=== PATIENT | female | born 1955 | race Caucasian/White ===

== ENCOUNTER → 2017-03-25 | Outpatient (CLI) | payer BC ==
--- NOTE | 2017-03-25 13:10 | REPMRS ---
Patient History The patient states she had a clinical breast exam in 12/2016. Patient is postmenopausal, has history of endometrial cancer at age 59, has history of ovarian cancer at age 50, and is nulliparous. Family history of prostate cancer in paternal uncle. Taking unspecified hormones for 11 years. Digital Woman Screen Mammo: March 25, 2017 - Exam #: [id number] Bilateral CC and MLO view(s) were taken. Technologist: Imelda Pedroza, Technologist Prior study comparison: January 17, 2016, digital woman screen mammo performed at [facility]. February 24, 2014, digital woman screen mammo performed at [facility]. FINDINGS: There are scattered fibroglandular densities. There has been no change in the appearance of the mammogram from the prior studies. There is a mild amount of residual fibroglandular tissue which is fairly symmetric. There is no interval development of dominant mass, architectural distortion, or clustered microcalcification suggestive of malignancy. ASSESSMENT: BI-RADS/ACR category 1 mammogram. Negative. Recommendation Routine screening mammogram in 1 year (for women over age 40). This mammogram was interpreted with the aid of an FDA-approved computer-aided dectection system. Electronically Signed By: Prince Hammond MD 03/25/17 1046
== END ==
LOC: M WHC 11:08
PROVIDERS: ATTEND Family Medicine
DX: Z12.31 Encounter for screening mammogram for malignant neoplasm of breast (principal); Z78.0 Asymptomatic menopausal state; Z79.890 Hormone replacement therapy

== ENCOUNTER 2017-08-08 12:07 | Emergency (ER) | payer BC ==
[2017-08-08] MEDS: KETOROLAC 60 MG/2 ML VIAL (J1885) IM (13:38)
[2017-08-08] MEDS: diazePAM 5 MG TAB PO (13:41)
[2017-08-08] MEDS: METHOCARBAMOL 1,000 MG/10 ML VIAL (J2800) IM (14:19)
== END 2017-08-08 15:06 | disposition home or self-care (01) ==
LOC: M ED 12:07
DX: M48.061 Spinal stenosis, lumbar region without neurogenic claudication (principal); M54.16 Radiculopathy, lumbar region; I10 Essential (primary) hypertension; F41.9 Anxiety disorder, unspecified; Z79.899 Other long term (current) drug therapy; Z79.890 Hormone replacement therapy; Z79.84 Long term (current) use of oral hypoglycemic drugs; Z88.8 Allergy status to other drugs, medicaments and biological substances; F17.210 Nicotine dependence, cigarettes, uncomplicated
CPT/HCPCS: J1885

== ENCOUNTER → 2017-08-25 | Outpatient (CLI) | payer BC | LOC: M PLARAD 07:38 | DX: M51.06 Intervertebral disc disorders with myelopathy, lumbar region (principal); M48.061 Spinal stenosis, lumbar region without neurogenic claudication ==

== ENCOUNTER → 2017-08-25 | Outpatient (CLI) | payer BC | LOC: M RAD 08:13 | DX: M51.06 Intervertebral disc disorders with myelopathy, lumbar region (principal); M48.061 Spinal stenosis, lumbar region without neurogenic claudication | CPT/HCPCS: 72148 ==

== ENCOUNTER → 2020-05-23 | Outpatient (CLI) | payer OTHER ==
[~2020-05-23] MED LIST: ATOR1TAB19 PO; CARV12.5 PO; CLON0.5T2 PO; ESTR1TAB PO; HYDR50TAB PO; METF10004 PO; PROG1CAP8 PO; ROBA500T PO; SYNT112T2 PO
--- NOTE | 2020-05-23 09:39 | REPMRS ---
Patient History The patient states she has not had a clinical breast exam in over a year. Family history of prostate cancer in paternal uncle. Taking unspecified hormones for 12 years. 3D TOMOSYNTHESIS WAS PERFORMED. [facility] lifetime risk for breast cancer is 9.0%. Voljeremya density a. Digital Woman Screen Mammo: May 23, 2020 - Exam #: [id number] Bilateral CC and MLO view(s) were taken. Technologist: Renée Irby, Technologist Prior study comparison: April 01, 2018, bilateral digital woman screen mammo performed at [facility]. March 25, 2017, digital woman screen mammo performed at [facility]. FINDINGS: There are scattered fibroglandular densities. There has been no change in the appearance of the mammogram from the prior studies. There is a mild amount of residual fibroglandular tissue which is fairly symmetric. There is no interval development of dominant mass, architectural distortion, or clustered microcalcification suggestive of malignancy. Assessment: BI-RADS/ACR category 1 mammogram. Negative Mammogram. Recommendation Routine screening mammogram in 1 year (for women over age 40). This mammogram was interpreted with the aid of an FDA-approved computer-aided dectection system. Electronically Signed By: Prince Hammond MD 05/23/20 0972
== END ==
LOC: M WHC 07:40
PROVIDERS: ATTEND Nurse Practitioner Family
DX: Z12.31 Encounter for screening mammogram for malignant neoplasm of breast (principal); Z79.899 Other long term (current) drug therapy

== ENCOUNTER → 2022-02-14 | Outpatient (CLI) | payer OTHER | LOC: M WHC 12:06 | PROVIDERS: ATTEND Family Medicine | DX: Z12.31 Encounter for screening mammogram for malignant neoplasm of breast (principal); Z78.0 Asymptomatic menopausal state; Z78.9 Other specified health status; Z80.42 Family history of malignant neoplasm of prostate; Z85.43 Personal history of malignant neoplasm of ovary ==

== ENCOUNTER → 2024-05-21 | Outpatient (CLI) | payer MEDICARE ==
[~2024-05-21] MED LIST changes: +ISOVUE-300 61% 100ML VIAL As Ordered ONE; +LIDOCAINE 1% MDV 20ML VIAL As Ordered ONE; +TRIAMCINOLONE ACETONIDE SUSP 40MG/ML 1ML VIAL As Ordered ONE
== END ==
LOC: M RAD 14:21
PROVIDERS: ATTEND Physician Assistant
DX: M16.11 Unilateral primary osteoarthritis, right hip (principal)
CPT/HCPCS: 20610; 77002; J3301; Q9967

== ENCOUNTER → 2024-09-08 | Outpatient (CLI) | payer MEDICARE ==
[~2024-09-08] MED LIST changes: -ISOVUE-300 61% 100ML VIAL As Ordered ONE; -LIDOCAINE 1% MDV 20ML VIAL As Ordered ONE; -TRIAMCINOLONE ACETONIDE SUSP 40MG/ML 1ML VIAL As Ordered ONE
== END ==
LOC: M WHC 13:19
PROVIDERS: ATTEND Nurse Practitioner Family
DX: Z12.31 Encounter for screening mammogram for malignant neoplasm of breast (principal); N95.9 Unspecified menopausal and perimenopausal disorder

== ENCOUNTER → 2024-10-12 | Outpatient (CLI) | payer MEDICARE ==
[~2024-10-12] MED LIST changes: +ISOVUE-300 61% 100ML VIAL As Ordered ONE; +LIDOCAINE 1% MDV 20ML VIAL As Ordered ONE; +TRIAMCINOLONE ACETONIDE SUSP 40MG/ML 1ML VIAL As Ordered ONE
== END ==
LOC: M RAD 14:02
PROVIDERS: ATTEND Physician Assistant
DX: M16.11 Unilateral primary osteoarthritis, right hip (principal)
CPT/HCPCS: 20610; 77002; J3301; Q9967

== ENCOUNTER → 2025-03-02 | Outpatient (CLI) | payer MEDICARE ==
[~2025-03-02] MED LIST changes: -ISOVUE-300 61% 100ML VIAL As Ordered ONE; -LIDOCAINE 1% MDV 20ML VIAL As Ordered ONE; -TRIAMCINOLONE ACETONIDE SUSP 40MG/ML 1ML VIAL As Ordered ONE
== END ==
LOC: M RAD 10:36
PROVIDERS: ATTEND Nurse Practitioner Family
DX: R60.9 Edema, unspecified (principal)

== ENCOUNTER → 2025-03-29 | Outpatient (CLI) | payer MEDICARE ==
[~2025-03-29] MED LIST changes: +ISOVUE-370 76% 100 ML VIAL ONE
== END ==
LOC: M PLAIMG 10:23
PROVIDERS: ATTEND Nurse Practitioner Family
DX: R31.9 Hematuria, unspecified (principal); N20.1 Calculus of ureter
CPT/HCPCS: 74178; Q9967

== ENCOUNTER 2025-06-15 06:45 | Day surgery (SDC) | payer MEDICARE ==
[~2025-06-15] VITALS: Ht 157.5 cm; Wt 124.1 kg
[~2025-06-15 06:45] MED LIST changes: +ATOR40TA75 PO; +CLON1TAB8 PO; -ISOVUE-370 76% 100 ML VIAL ONE; +LEVO100T5 PO; +LEVO1TAB39 PO; +METF-838 PO; +METO1TAB33 PO; +PERC5TAB12 PO; +SEMA2PEN SUBQ; +SERT50TA29 PO; +TRAM50TA2 PO; +XARE20TA PO
[2025-06-15] MEDS ORDERED: ONDANSETRON 4MG/2ML VIAL As Ordered ONE (06:58)
[2025-06-15] MEDS ORDERED: LIDOCAINE 2% 100 MG/5 ML SDV (FOR ANES.) As Ordered ONE (06:58)
[2025-06-15] MEDS ORDERED: dexAMETHasone 4 MG/ML 1 ML VIAL As Ordered ONE (06:58)
[2025-06-15] MEDS ORDERED: MIDAZOLAM INJ 2 MG/2 ML VIAL As Ordered ONE (06:59)
[2025-06-15] MEDS ORDERED: SCOPOLAMINE 1MG TRANSDERMAL PATCH As Ordered ONE (08:16)
[2025-06-15] MEDS: ceFAZolin SOD 3 GM in DEXTROSE 5% (D5W) MINI-BAG PLU 1... IV ONE (08:23)
[2025-06-15] MEDS ORDERED: ACETAMINOPHEN 1000MG/100ML IV BAG As Ordered ONE (08:42)
[2025-06-15] MEDS: ISOVUE-300 61% 100 ML VIAL As Ordered ONE (09:30)
[2025-06-15] MEDS ORDERED: MORPHINE 2 MG/ML 1 ML VIAL IV PRN (10:05)
[2025-06-15] MEDS: HYDROMORPHONE HCL 0.5 MG/0.5 ML SYRINGE IV PRN (10:16)
[2025-06-15] MEDS: ONDANSETRON 4MG/2ML VIAL IV PRN (10:17)
[2025-06-15] MEDS ORDERED: TAMS-18 PO (10:23)
[2025-06-15] MEDS ORDERED: OXYB5TAB14 PO (10:23)
[2025-06-15 11:15] VITALS: BP 130/82; TEMP 97; O2SAT 97
== END 2025-06-15 11:43 | disposition home or self-care (01) ==
LOC: M SDC 06:45
PROVIDERS: ATTEND Urology
DX: N13.2 Hydronephrosis with renal and ureteral calculous obstruction (principal); I48.91 Unspecified atrial fibrillation; E11.9 Type 2 diabetes mellitus without complications; E03.9 Hypothyroidism, unspecified; I10 Essential (primary) hypertension; J44.9 Chronic obstructive pulmonary disease, unspecified; K21.9 Gastro-esophageal reflux disease without esophagitis; Z86.73 Personal history of transient ischemic attack (TIA), and cerebral infarction without residual deficits; Z79.899 Other long term (current) drug therapy; Z79.84 Long term (current) use of oral hypoglycemic drugs; Z79.85 Long-term (current) use of injectable non-insulin antidiabetic drugs; Z79.890 Hormone replacement therapy; Z79.01 Long term (current) use of anticoagulants; Z88.8 Allergy status to other drugs, medicaments and biological substances
CPT/HCPCS: 52356; 74420; 82365; C1769; C1894; C2617; J0131; J0688; J1100; J1171; J2250; J2405; J3010; Q9967